=== PATIENT | male | born 1950 | race Caucasian/White ===

== ENCOUNTER 2019-03-22 08:41 | Inpatient (IN) | payer OTHER, MEDICARE ==
[2019-03-21 16:14] VITALS: BMI 31.3
[2019-03-22] MEDS ORDERED: PROPOFOL 20 ML ONE (10:08)
[2019-03-22] MEDS ORDERED: ROCURONIUM BROMIDE 50 MG/5 ML SYRINGE ONE ×2 (10:09→12:08)
[2019-03-22] MEDS ORDERED: MIDAZOLAM HCL 2 MG/2 ML SINGLE DOSE VIAL ONE (10:09)
[2019-03-22 10:38] LABS: INR 1.31 (0.82-1.09); PROTHROMBIN TIME (PATIENT) 14.6 SEC (10.2-13.0)
[2019-03-22] MEDS ORDERED: ONDANSETRON 4 MG/2 ML VIAL ONE ×2 (11:24→13:23)
[2019-03-22] MEDS ORDERED: HYDROCORTISONE SOD SUCCINATE 2 ML ONE (11:45)
[2019-03-22] MEDS ORDERED: GUM MASTIC/STORAX/MSAL/ALCOHOL 1 DRP DROPSBTL MC ONE (12:01)
[2019-03-22] MEDS ORDERED: GLYCOPYRROLATE 0.2 MG/1 ML VIAL ONE (12:41)
[2019-03-22] MEDS ORDERED: NEOSTIGMINE METHYLSULFATE 0.5 MG/ML - 10 ML MDV ONE (12:41)
[2019-03-22] MEDS ORDERED: ONDANSETRON 4 MG/2 ML VIAL IVPUSH PRN ×2 (13:05→13:25)
[2019-03-22] MEDS ORDERED: HYDROmorphone HCL CARPU-JECT 1 MG/1 ML DISP.SYRIN IVPUSH PRN (13:05)
[2019-03-22] MEDS ORDERED: LACTATED RINGERS SOLUTION 1,000 ML IV SCH (13:15)
[2019-03-22] MEDS ORDERED: PATIENT'S OWN MEDICATION (NON-FORMULARY) (Alirocumab [Praluent Pen] 75 MG) SQ SCH (13:30)
[2019-03-22] MEDS ORDERED: DEXTROSE 5%-0.45% SALINE 1,000 ML IV SCH (13:30)
[2019-03-22] MEDS ORDERED: HYDROmorphone HCL 0.5 MG/0.5 ML SYRINGE ONE (14:09)
--- NOTE | 2019-03-22 14:58 | HP ---
HISTORY OF PRESENT ILLNESS: 68 year-old male with a PMH significant for HTN, HLD, DVT, PE, polymyalgia rheumatica, proteinuria, ANTHONY, and spinal stenosis s/p L3-L4 laminectomy on with Dr. Nielson at [facility]. On 03/02 patient developed drainage from the surgical site. Dr. Nielson aspirated 25cc blood-tinged, nonpururlent fluid, but there is no available culture report. Patient completed a course of Keflex. On 03/[address] Tripp's office with yellowish discharge from the surgical site. Patient is now s/p drainage/lavage earlier today with Dr. Tripp. 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 Smoking: nightly cigar Alcohol: 1 drink per night Drugs: no Family history: father prostate cancer, Parkinson's; Allergies No Known Allergies Allergy (Verified 03/22/19 09:25) HOME MEDICATIONS: Home Medications Medication Instructions Recorded Alirocumab [Praluent Pen] 75 mg SQ ASDIR 03/21/19 Allopurinol [Zyloprim -] 200 mg PO DAILY 03/21/19 Metoprolol Tartrate 50 mg PO DAILY 03/21/19 Prednisone 5 mg PO DAILY 03/21/19 Ropinirole HCl [Requip -] 2.5 mg PO HS 03/21/19 Valsartan [Diovan] 160 mg PO DAILY 03/21/19 Warfarin Na [Coumadin] 2 mg PO ASDIR 03/21/19 REVIEW OF SYSTEMS CONSTITUTIONAL: Absent: fever, chills, diaphoresis, generalized weakness, malaise, loss of appetite, weight change HEENT: Absent: rhinorrhea, nasal congestion, throat pain, throat swelling, difficulty swallowing, mouth swelling, ear pain, eye pain, visual changes CARDIOVASCULAR: Absent: chest pain, syncope, palpitations, irregular heart rate, lightheadedness , peripheral edema RESPIRATORY: Absent: cough, shortness of breath, dyspnea with exertion, orthopnea, wheezing, stridor, hemoptysis GASTROINTESTINAL: Absent: abdominal pain, abdominal distension, nausea, vomiting, diarrhea, constipation, melena, hematochezia GENITOURINARY: Absent: dysuria, frequency, urgency, hesitancy, hematuria, flank pain, genital pain MUSCULOSKELETAL: +back pain with bilateral radiculopathy Absent: myalgia, arthralgia, joint swelling, back pain, neck pain SKIN: Absent: rash, itching, pallor HEMATOLOGIC/IMMUNOLOGIC: Absent: easy bleeding, easy bruising, lymphadenopathy, frequent infections ENDOCRINE: Absent: unexplained weight gain, unexplained weight loss, heat intolerance, cold intolerance NEUROLOGIC: Absent: headache, focal weakness or paresthesias, dizziness, unsteady gait, seizure, mental status changes, bladder or bowel incontinence PSYCHIATRIC: Absent: anxiety, depression, suicidal or homicidal ideation, hallucinations. PHYSICAL EXAMINATION Vital Signs - 24 hr 03/22/19 03/22/19 03/22/19 09:28 13:01 13:05 Temperature 98.1 F 97.7 F Pulse Rate 73 78 71 Respiratory 20 14 16 Rate Blood Pressure 144/87 152/88 156/87 O2 Sat by Pulse 100 Oximetry (%) 03/22/19 03/22/19 03/22/19 13:10 13:15 13:30 Temperature Pulse Rate 71 72 82 Respiratory 16 16 16 Rate Blood Pressure 145/99 135/81 131/81 O2 Sat by Pulse 100 100 100 Oximetry (%) 03/22/19 13:45 Temperature 97.7 F Pulse Rate 82 Respiratory 16 Rate Blood Pressure 131/81 O2 Sat by Pulse 100 Oximetry (%) GENERAL: Awake, alert, and fully oriented, in no acute distress. LUNGS: Breath sounds equal, clear to auscultation bilaterally. No wheezes, and no crackles. No accessory muscle use. HEART: Regular rate and rhythm, normal S1 and S2 ABDOMEN: Soft, nontender, not distended BACK: surgical dressing c/d/i, surgical wound not visualized; Hemovac drain MUSCULOSKELETAL: Normal range of motion at all joints. No bony deformities or tenderness. No CVA tenderness. UPPER EXTREMITIES: 2+ pulses, warm, well-perfused. No cyanosis. No clubbing. No peripheral edema. LOWER EXTREMITIES: 2+ pulses, warm, well-perfused. No calf tenderness. No peripheral edema. NEUROLOGICAL: Cranial nerves II-XII intact. Normal speech. Laboratory Results - last 24 hr 03/22/19 10:15 PT with INR 14.6 H INR 1.31 H ASSESSMENT/PLAN 68 year-old male with a PMH significant for HTN, HLD, DVT, PE, polymyalgia rheumatica, proteinuria, ANTHONY, and spinal stenosis s/p L3-L4 laminectomy on , now s/p drainage/lavage for a surgical wound infection. Surgical wound infection s/p drainage and lavage --POD #0 --Cefazolin 1g q6h --pain management per surgery --protonix --bowel regimen --incentive spirometry --Hemovac drain, monitor output h/o DVT h/o PE --last dose coumadin on 03/18 --hold anti-coagulation until tomorrow Polymyalgia rheumatica --on a slow prednisone taper, current dosing 5mg in am, 4mg in pm, will continue ANTHONY --uses CPAP at home, does not want to use while inpatient Hypertension --BP stable --continue valsartan, metoprolol Hyperlipidemia --continue alirocumab Restless leg --continue ropinirole FEN Fluids: PO intake adequate Electrolytes: replete as indicated Nutrition: regular diet DVT prophylaxis: OOB, ambulation, TEDs; will start full dose lovenox tomorrow if no bleeding problems and start bridge to coumadin Physical therapy Dispo: continues to require inpatient care. Full code. Visit type - Emergency Visit Emergency Visit: No - New Patient This patient is new to me today: Yes Date on this admission: 03/23/19 - Critical Care Critical Care patient: No
[2019-03-22] MEDS ORDERED: diazePAM 5 MG TABLET PO PRN (15:33)
--- NOTE | 2019-03-22 16:55 | OP ---
Operative Note - Note: Operative Date: 03/22/19 Pre-Operative Diagnosis: wound infection Operation: s/p wound exploration to lumbar region with drainage/lavage of the wound Surgeon: Bg Tripp Honing Machine Operator Semiautomatic: Katie Hernandez Anesthesiologist/WIRE MILL ROVER: Amanda Montana Anesthesia: General Estimated Blood Loss (mls): 30 Fluid Volume Replaced (mls): 700 Operative Report Dictated: Yes
--- NOTE | 2019-03-22 16:56 | SURG ---
Surgery Pantry Chef Note Pantry Chef: Katie Hernandez PA-C Date of Service: 03/22/19 Diagnosis: wound infection Procedure: s/p wound exploration to lumbar region with drainage/lavage of the wound I was present for the entirety of the operative procedure. For further detail, please refer to operative report. Visit type - Case Type Case Type: Scheduled - Emergency Emergency Visit: No - New patient This patient is new to me today: Yes Date on this admission: 03/22/19
[2019-03-22] MEDS: oxyCODONE HCL 5 MG TABLET PO PRN ×2 (18:10→22:06)
[2019-03-22] MEDS: CEFAZOLIN 1 GM/D5W 1 GRAM/50 ML BAG IVPB SCH (20:16)
[2019-03-22] MEDS: rOPINIRole HCL 1 MG TABLET (FP) PO SCH (21:34)
[2019-03-23] MEDS: CEFAZOLIN 1 GM/D5W 1 GRAM/50 ML BAG IVPB SCH ×4 (01:24→20:13)
[2019-03-23] MEDS: oxyCODONE HCL 5 MG TABLET PO PRN ×4 (04:09→17:28)
[2019-03-23 07:56] LABS: HEMATOCRIT 39.7 % (35.4-49); HEMOGLOBIN 12.8 GM/dl (11.7-16.9); MCH 31.7 pg (25.7-33.7); MCHC 32.3 g/dl (32.0-35.9); MEAN CELL VOLUME 98.1 fl (80-96); MEAN PLT VOLUME 9.4 fl (7.5-11.1); PLATELET COUNT 151 K/MM3 (134-434); RBC 4.05 M/mm3 (4.00-5.60); RDW 14.7 % (11.9-15.9); WHITE BLOOD COUNT 13.7 K/mm3 (4.0-10.8)
[2019-03-23 08:19] LABS: CALCIUM 9.1 mg/dl (8.5-10); CREATININE 1.3 mg/dl (0.55-1.3); POTASSIUM 4.4 mmol/L (3.5-5.1)
--- NOTE | 2019-03-23 08:33 | PN ---
Progress Note (short form) - Note Progress Note: Surgery POD #1 s/p wound exploration to lumbar region with drainage/lavage of the wound patient seen and examined at bedside and doing well. Patient states he has little to no pain at surgical site and less right LE radiculopathy. He has been OOB and ambulating without assistance. He is tolerating his diet and denies any CP, SOB, N/V, fever or chills. Vital Signs Temp 97.6 F 03/23/19 06:24 Pulse 70 03/23/19 06:24 Resp 19 03/23/19 07:30 BP 154/85 03/23/19 06:24 Pulse Ox 99 03/23/19 07:30 Intake & Output 03/22/19 03/22/19 03/23/19 11:59 23:59 11:59 Intake Total 2800 Output Total 220 10 Balance 2580 -10 Weight 200 lb 205 lb 8 oz Intake: IV 1400 D5-1/2Ns - 1,000 ml @ 100 500 mls/hr IV ASDIR DAVID Rx#: [id number] Oral 400 Other 1000 Output: Drainage 70 10 Back 30 Lower Back 30 10 Urine 100 Void 100 Estimated Blood Loss 50 Other: Voiding Method Urinal Urinal Height 5 ft 7 in Body Mass Index (BMI) 31.3 Weight Measurement Method Standing Scale Standing Scale CBC, BMP 03/23/19 07:21 03/23/19 07:21 PE: A&Ox3, NAD Unlabored resp on RA Lumbar spine: Dressing c/d/i with surrounding tissue intact and no evidence of tracking erythema, edema, collection or active drainage. Drain in good position and draining well-50cc since surgery. B/L LE compartments soft, supple and non-tender with +2DP pulses. 5/5 dorsi/ plantar flexion. <Valencia Melton - Last Filed: 03/23/19 08:27> - Note Progress Note: Patient is comfortable States that his pain is improved Awaiting ID consult <Bg Tripp - Last Filed: 03/25/19 06:03> Problem List - Problems (1) Wound infection Assessment/Plan: POD #1 wound exploration and drainage doing well. -Trend drain output -Trend labs -ABX per medicine -Resume anticoagulation -OOB as tolerated Evaluation and plan discussed with Dr Tripp. Code(s): T14.8XXA - OTHER INJURY OF UNSPECIFIED BODY REGION, INITIAL ENCOUNTER; L08.9 - LOCAL INFECTION OF THE SKIN AND SUBCUTANEOUS TISSUE, UNSP <Valencia Melton - Last Filed: 03/23/19 08:27>
[2019-03-23] MEDS: VALSARTAN 160 MG TABLET (UD) PO SCH (09:14)
[2019-03-23] MEDS: ALLOPURINOL 100 MG TABLET (FP) PO SCH (09:15)
[2019-03-23] MEDS: METOPROLOL TARTRATE 50 MG TABLET (FP) PO SCH (09:15)
[2019-03-23] MEDS: predniSONE 5 MG TABLET (UD) PO SCH (09:48)
[2019-03-23] MEDS: ENOXAPARIN NA (PORCINE) 100 MG/1 ML DISP.SYRIN SQ SCH ×3 (09:48→22:14)
[2019-03-23] MEDS ORDERED: WARFARIN NA 5 MG TABLET (UD) PO ONE (10:00)
--- NOTE | 2019-03-23 16:05 | CON.ID ---
Consult Consult Specialty:: infectious diseases Referred by:: Peg Reason for Consultation:: spinal infection post op - History of Present Illness Chief Complaint: pain in the back,draiange post op History of Present Illness: 68 year-old male with a PMH significant for HTN, HLD, DVT, PE, polymyalgia rheumatica, proteinuria, ANTHONY, and spinal stenosis s/p L3-L4 laminectomy on with Dr. Nielson at [facility]. On 03/02 patient developed drainage from the surgical site. Dr. Nielson aspirated 25cc blood-tinged, nonpururlent fluid, but there is no available culture report. Patient completed a course of Keflex. On 03/[address] Tripp's office with yellowish discharge from the surgical site. patient was then to the or and a wash out was done and currently patient has drainage tube in place post op - History Source History Provided By: Patient Limitations to Obtaining History: No Limitations - Alcohol/Substance Use Hx Alcohol Use: Yes (DAILY SCOTCH) - Smoking History Smoking history: Never smoked Have you smoked in the past 12 months: No Home Medications - Allergies Allergies/Adverse Reactions: Allergies Allergy/AdvReac Type Severity Reaction Status Date / Time No Known Allergies Allergy Verified 03/22/19 09:25 - Home Medications Home Medications: Ambulatory Orders Alirocumab [Praluent Pen] 75 mg SQ ASDIR 03/21/19 Allopurinol [Zyloprim -] 200 mg PO DAILY 03/21/19 Metoprolol Tartrate 50 mg PO DAILY 03/21/19 Prednisone 5 mg PO DAILY 03/21/19 Ropinirole HCl [Requip -] 2.5 mg PO HS 03/21/19 Valsartan [Diovan] 160 mg PO DAILY 03/21/19 Warfarin Na [Coumadin] 2 mg PO ASDIR 03/21/19 predniSONE [Deltasone -] 4 mg PO HS 03/23/19 Review of Systems - Review of Systems Constitutional: reports: No Symptoms Eyes: reports: No Symptoms HENT: reports: No Symptoms Neck: reports: No Symptoms Cardiovascular: reports: No Symptoms Respiratory: reports: No Symptoms Gastrointestinal: reports: No Symptoms Musculoskeletal: reports: Back Pain Integumentary: reports: No Symptoms Neurological: reports: No Symptoms Endocrine: reports: No Symptoms Hematology/Lymphatic: reports: No Symptoms Psychiatric: reports: No Symptoms Physical Exam Vital Signs: Vital Signs Temperature 98.1 F 03/23/19 14:13 Pulse Rate 72 03/23/19 14:13 Respiratory Rate 18 03/23/19 14:13 Blood Pressure 122/66 03/23/19 14:13 O2 Sat by Pulse Oximetry (%) 98 03/23/19 14:13 Constitutional: Yes: Well Nourished, Calm, Mild Distress Eyes: Yes: Conjunctiva Clear HENT: Yes: Atraumatic, Normocephalic Neck: Yes: Supple, Trachea Midline Cardiovascular: Yes: Regular Rate and Rhythm Respiratory: Yes: Regular, CTA Bilaterally Gastrointestinal: Yes: Normal Bowel Sounds, Soft Musculoskeletal: Yes: WNL Extremities: Yes: WNL Wound/Incision: Yes: Dressing Dry and Intact, Other (drain in place) Neurological: Yes: Alert, Oriented Labs: CBC, BMP 03/23/19 07:21 03/23/19 07:21 Assessment/Plan 68 year-old male with a PMH significant for HTN, HLD, DVT, PE, polymyalgia rheumatica, proteinuria, ANTHONY, and spinal stenosis s/p L3-L4 laminectomy on , now s/p drainage/lavage for a surgical wound infection. Surgical wound infection s/p drainage and lavage DVT PE Polymyalgia rheumatica ANTHONY Hypertension Hyperlipidemia Restless leg Proteinuria plan continue abx await for cx report wound care rest as per the team
[2019-03-23] MEDS ORDERED: POLYETHYLENE GLYCOL 3350 119 GM BTL PO ONE (16:37)
[2019-03-23] MEDS: PANTOPRAZOLE 40 MG TABLET (FP) PO SCH (17:22)
--- NOTE | 2019-03-23 18:42 | PN ---
Physical Exam: SUBJECTIVE: Patient seen and examined at bedside. Has no pain at present. OBJECTIVE: Vital Signs Period Temp Pulse Resp BP Sys/Figueroa Pulse Ox Last 24 Hr 97.6 F-98.4 F 67-81 18-19 122-154/66-85 95-99 GENERAL: Awake, alert, and fully oriented, in no acute distress. LUNGS: Breath sounds equal, clear to auscultation bilaterally. No wheezes, and no crackles. No accessory muscle use. HEART: Regular rate and rhythm, normal S1 and S2 ABDOMEN: Soft, nontender, not distended BACK: surgical dressing c/d/i, surgical wound not visualized; Hemovac drain MUSCULOSKELETAL: Normal range of motion at all joints. No bony deformities or tenderness. No CVA tenderness. UPPER EXTREMITIES: 2+ pulses, warm, well-perfused. No cyanosis. No clubbing. No peripheral edema. LOWER EXTREMITIES: 2+ pulses, warm, well-perfused. No calf tenderness. No peripheral edema. NEUROLOGICAL: Cranial nerves II-XII intact. Normal speech. Laboratory Results - last 24 hr 03/23/19 03/23/19 07:21 07:21 WBC 13.7 H RBC 4.05 Hgb 12.8 Hct 39.7 MCV 98.1 H MCH 31.7 MCHC 32.3 RDW 14.7 Plt Count 151 MPV 9.4 Sodium 139 Potassium 4.4 Chloride 105 Carbon Dioxide 25 Anion Gap 9 BUN 22.0 H Creatinine 1.3 Est GFR (CKD-EPI)AfAm 64.98 Est GFR (CKD-EPI)NonAf 56.06 Random Glucose 98 Calcium 9.1 Active Medications Generic Name Dose Route Start Last Admin Trade Name Waltq PRN Reason Stop Dose Admin Acetaminophen 650 mg 03/22/19 13:25 Tylenol - PO Q4H PRN FEVER Allopurinol 200 mg 03/23/19 10:00 03/23/19 09:15 Zyloprim - PO 200 mg DAILY DAVID Administration Enoxaparin Sodium 90 mg 03/23/19 10:00 03/23/19 09:51 Lovenox - SQ Not Given Q12H DAVID Cefazolin Sodium 1 gram in 50 mls @ 100 mls/hr 03/22/19 20:00 03/23/19 13:20 Ancef 1 Gm Premixed Ivpb - IVPB 100 mls/hr Q6H DAVID Administration Metoprolol Tartrate 50 mg 03/23/19 10:00 03/23/19 09:15 Lopressor - PO 50 mg DAILY DAVID Administration Non-Formulary Medication 75 mg 03/22/19 13:30 Alirocumab [Praluent Pen] SQ ASDIR DAVID Ondansetron HCl 4 mg 03/22/19 13:25 Zofran Injection IVPUSH Q6H PRN NAUSEA AND/OR VOMITING Oxycodone HCl 5 mg 03/22/19 13:25 03/23/19 17:28 Roxicodone - PO 5 mg Q4H PRN Administration PAIN LEVEL 1-5 Pantoprazole Sodium 40 mg 03/23/19 16:45 03/23/19 17:22 Protonix - PO 40 mg DAILY DAVID Administration Prednisone 5 mg 03/23/19 10:00 03/23/19 09:48 Deltasone - PO 5 mg DAILY DAVID Administration Prednisone 4 mg 03/23/19 22:00 Deltasone - PO HS DAVID Ropinirole HCl 2.5 mg 03/22/19 22:00 03/22/19 21:34 Requip - PO 2.5 mg HS DAVID Administration Senna/Docusate Sodium 2 tablet 03/23/19 22:00 Pericolace - PO 03/24/19 16:39 HS DAVID Valsartan 160 mg 03/23/19 10:00 03/23/19 09:14 Diovan - PO 160 mg DAILY DAVID Administration Pre op 03/21/19 BUN 29 Cr 1.3 ASSESSMENT/PLAN 68 year-old male with a PMH significant for HTN, HLD, DVT, PE, polymyalgia rheumatica, proteinuria, ANTHONY, and spinal stenosis s/p L3-L4 laminectomy on , now s/p drainage/lavage for a surgical wound infection. Surgical wound infection s/p drainage and lavage --POD #1 --Cefazolin 1g q6h; ID consult pending --pain management per surgery --protonix --bowel regimen --incentive spirometry --Hemovac drain, minimal output h/o DVT h/o PE --last dose coumadin on 03/18 --start lovenox 1mg/kg BID --INR 1.31, dose 5mg warfarin --daily INR, daily dosing warfarin Polymyalgia rheumatica --on a slow prednisone taper, current dosing 5mg in am, 4mg in pm, will continue ANTHONY --uses CPAP at home, does not want to use while inpatient Hypertension --BP stable --continue valsartan, metoprolol Hyperlipidemia --continue alirocumab Restless leg --continue ropinirole Proteinuria --renal function stable FEN Fluids: PO intake adequate Electrolytes: replete as indicated Nutrition: regular diet DVT prophylaxis: lovenox 1mg/kg BID; daily dosing warfarin to achieve INR 2-3 Physical therapy Dispo: continues to require inpatient care. Full code. Visit type - Emergency Visit Emergency Visit: No - New Patient This patient is new to me today: No - Critical Care Critical Care patient: No
--- NOTE | 2019-03-23 18:49 | PROC ---
Procedure Note Procedure: Hemovac drain pulled from midline back with tip intact. No active bleeding. Sterile gauzed placed. Patient tolerated well.
[2019-03-23] MEDS ORDERED: oxyCODONE HCL 5 MG TABLET PO ONE (22:00)
[2019-03-23] MEDS ORDERED: SENNOSIDES/DOCUSATE COMBO (SENNA PLUS) TABLET (UD) PO SCH (22:00)
[2019-03-23] MEDS: predniSONE 1 MG TABLET (FP) PO SCH (22:09)
[2019-03-23] MEDS: rOPINIRole HCL 1 MG TABLET (FP) PO SCH (22:12)
[2019-03-24] MEDS: oxyCODONE HCL 5 MG TABLET PO PRN ×4 (02:24→21:15)
[2019-03-24] MEDS: CEFAZOLIN 1 GM/D5W 1 GRAM/50 ML BAG IVPB SCH ×4 (02:24→19:46)
[2019-03-24] MEDS: predniSONE 5 MG TABLET (UD) PO SCH (09:09)
[2019-03-24] MEDS: PANTOPRAZOLE 40 MG TABLET (FP) PO SCH (09:10)
[2019-03-24] MEDS: ALLOPURINOL 100 MG TABLET (FP) PO SCH (09:10)
[2019-03-24] MEDS: METOPROLOL TARTRATE 50 MG TABLET (FP) PO SCH (09:10)
[2019-03-24] MEDS: VALSARTAN 160 MG TABLET (UD) PO SCH (09:10)
[2019-03-24] MEDS: ENOXAPARIN NA (PORCINE) 100 MG/1 ML DISP.SYRIN SQ SCH ×2 (09:12→16:19)
[2019-03-24] MEDS ORDERED: POLYETHYLENE GLYCOL 3350 119 GM BTL PO SCH (10:00)
--- NOTE | 2019-03-24 11:47 | PN ---
Progress Note, Physician History of Present Illness: Pt states he feels well. Has occasional pain but controlled. - Current Medication List Current Medications: Active Medications Acetaminophen (Tylenol -) 650 mg PO Q4H PRN PRN Reason: FEVER Allopurinol (Zyloprim -) 200 mg PO DAILY [facility] Last Admin: 03/24/19 09:10 Dose: 200 mg Enoxaparin Sodium (Lovenox -) 90 mg SQ Q12H [facility] Last Admin: 03/24/19 09:12 Dose: Not Given Cefazolin Sodium (Ancef 1 Gm Premixed Ivpb -) 1 gram in 50 mls @ 100 mls/hr IVPB Q6H [facility] Last Admin: 03/24/19 08:06 Dose: 100 mls/hr Metoprolol Tartrate (Lopressor -) 50 mg PO DAILY [facility] Last Admin: 03/24/19 09:10 Dose: 50 mg Non-Formulary Medication (Alirocumab [Praluent Pen]) 75 mg SQ ASDIR [facility] Ondansetron HCl (Zofran Injection) 4 mg IVPUSH Q6H PRN PRN Reason: NAUSEA AND/OR VOMITING Oxycodone HCl (Roxicodone -) 5 mg PO Q6H PRN PRN Reason: PAIN LEVEL 1-5 Last Admin: 03/24/19 09:09 Dose: 5 mg Pantoprazole Sodium (Protonix -) 40 mg PO DAILY [facility] Last Admin: 03/24/19 09:10 Dose: 40 mg Prednisone (Deltasone -) 5 mg PO DAILY [facility] Last Admin: 03/24/19 09:09 Dose: 5 mg Prednisone (Deltasone -) 4 mg PO [facility] Last Admin: 03/23/19 22:09 Dose: 4 mg Ropinirole HCl (Requip -) 2.5 mg PO HS [facility] Last Admin: 03/23/19 22:12 Dose: 2.5 mg Senna/Docusate Sodium (Pericolace -) 2 tablet PO [facility] Stop: 03/24/19 16:39 Last Admin: 03/23/19 22:09 Dose: 2 tablet Valsartan (Diovan -) 160 mg PO DAILY [facility] Last Admin: 03/24/19 09:10 Dose: 160 mg - Objective Vital Signs: Vital Signs Temperature 98.7 F 03/24/19 09:48 Pulse Rate 77 03/24/19 09:48 Respiratory Rate 03/24/19 09:48 Blood Pressure 131/75 03/24/19 09:48 O2 Sat by Pulse Oximetry (%) 100 03/24/19 09:48 Constitutional: Yes: No Distress, Calm Cardiovascular: Yes: Regular Rate and Rhythm Respiratory: Yes: Regular Gastrointestinal: Yes: Normal Bowel Sounds, Soft Genitourinary: Yes: WNL Musculoskeletal: Yes: Back Pain Extremities: Yes: WNL Integumentary: Yes: WNL Wound/Incision: Yes: Dressing Dry and Intact Neurological: Yes: Alert, Oriented Labs: CBC, BMP 03/23/19 07:21 03/23/19 07:21 INR, PTT INR 1.31 (0.82-1.09) H 03/22/19 10:15 Microbiology 03/22/19 11:42 Back Gram Stain - Final 03/22/19 11:42 Back Wound Culture - Preliminary 03/22/19 11:42 Back Gram Stain - Final Problem List - Problems (1) Wound infection Code(s): T14.8XXA - OTHER INJURY OF UNSPECIFIED BODY REGION, INITIAL ENCOUNTER; L08.9 - LOCAL INFECTION OF THE SKIN AND SUBCUTANEOUS TISSUE, UNSP Assessment/Plan Surgical wound infection s/p drainage and lavage s/p Lumbar laminectomy Hx of DVT Hx of PE Polymyalgia rheumatica ANTHONY Hypertension Hyperlipidemia -- continue Ancef for now -- follow up final wound culture results -- continue wound care
[2019-03-24] MEDS ORDERED: MAG HYDROX/AL HYDROX/SIMETH 30 ML UNIT-DOSE CUP PO PRN (12:25)
--- NOTE | 2019-03-24 12:25 | PN ---
Physical Exam: SUBJECTIVE: Patient seen and examined. Denies pain. OBJECTIVE: Vital Signs Period Temp Pulse Resp BP Sys/Figueroa Pulse Ox Last 24 Hr 97.6 F-98.8 F 61-77 18-19 122-138/66-79 95-100 GENERAL: Awake, alert, and fully oriented, in no acute distress. LUNGS: Breath sounds equal, clear to auscultation bilaterally. No wheezes, and no crackles. No accessory muscle use. HEART: Regular rate and rhythm, normal S1 and S2 ABDOMEN: Soft, nontender, not distended BACK: surgical dressing c/d/i, surgical wound not visualized MUSCULOSKELETAL: Normal range of motion at all joints. No bony deformities or tenderness. No CVA tenderness. UPPER EXTREMITIES: 2+ pulses, warm, well-perfused. No cyanosis. No clubbing. No peripheral edema. LOWER EXTREMITIES: 2+ pulses, warm, well-perfused. No calf tenderness. No peripheral edema. NEUROLOGICAL: Cranial nerves II-XII intact. Normal speech. Active Medications Generic Name Dose Route Start Last Admin Trade Name Freq PRN Reason Stop Dose Admin Acetaminophen 650 mg 03/22/19 13:25 Tylenol - PO Q4H PRN FEVER Al Hydroxide/Mg Hydroxide 30 ml 03/24/19 12:25 Mylanta Oral Suspension - PO Q6H PRN DYSPEPSIA Allopurinol 200 mg 03/23/19 10:00 03/24/19 09:10 Zyloprim - PO 200 mg DAILY DAVID Administration Enoxaparin Sodium 90 mg 03/23/19 10:00 03/24/19 09:12 Lovenox - SQ Not Given Q12H [facility] Cefazolin Sodium 1 gram in 50 mls @ 100 mls/hr 03/22/19 20:00 03/24/19 08:06 Ancef 1 Gm Premixed Ivpb - IVPB 100 mls/hr Q6H DAVID Administration Metoprolol Tartrate 50 mg 03/23/19 10:00 03/24/19 09:10 Lopressor - PO 50 mg DAILY DAVID Administration Non-Formulary Medication 75 mg 03/22/19 13:30 Alirocumab [Praluent Pen] SQ ASDIR DAVID Ondansetron HCl 4 mg 03/22/19 13:25 03/24/19 12:21 Zofran Injection IVPUSH 4 mg Q6H PRN Administration NAUSEA AND/OR VOMITING Oxycodone HCl 5 mg 03/23/19 18:47 03/24/19 09:09 Roxicodone - PO 5 mg Q6H PRN Administration PAIN LEVEL 1-5 Pantoprazole Sodium 40 mg 03/23/19 16:45 03/24/19 09:10 Protonix - PO 40 mg DAILY DAVID Administration Prednisone 5 mg 03/23/19 10:00 03/24/19 09:09 Deltasone - PO 5 mg DAILY DAVID Administration Prednisone 4 mg 03/23/19 22:00 03/23/19 22:09 Deltasone - PO 4 mg HS DAVID Administration Ropinirole HCl 2.5 mg 03/22/19 22:00 03/23/19 22:12 Requip - PO 2.5 mg HS DAVID Administration Senna/Docusate Sodium 2 tablet 03/23/19 22:00 03/23/19 22:09 Pericolace - PO 03/24/19 16:39 2 tablet HS DAVID Administration Valsartan 160 mg 03/23/19 10:00 03/24/19 09:10 Diovan - PO 160 mg DAILY DAVID Administration ASSESSMENT/PLAN: Pre op 03/21/19 BUN 29 Cr 1.3 ASSESSMENT/PLAN 68 year-old male with a PMH significant for HTN, HLD, DVT, PE, polymyalgia rheumatica, proteinuria, ANTHONY, and spinal stenosis s/p L3-L4 laminectomy on , now s/p drainage/lavage for a surgical wound infection. Surgical wound infection s/p drainage and lavage --POD #2 --afebrile, no leukocytosis --cultures growing staph coag neg; discussed with ID, continue Cefazolin 1g q6h for now --pain management per surgery --protonix; Maalox --bowel regimen --incentive spirometry h/o DVT h/o PE --last dose coumadin on 03/18 --lovenox 1mg/kg BID --daily INR, daily dosing warfarin Polymyalgia rheumatica --on a slow prednisone taper, current dosing 5mg in am, 4mg in pm, will continue ANTHONY --uses CPAP at home, does not want to use while inpatient Hypertension --BP stable --continue valsartan, metoprolol Hyperlipidemia --continue alirocumab Restless leg --continue ropinirole Proteinuria --renal function stable FEN Fluids: PO intake adequate Electrolytes: replete as indicated Nutrition: regular diet DVT prophylaxis: lovenox 1mg/kg BID; daily dosing warfarin to achieve INR 2-3 Physical therapy Dispo: continues to require inpatient care. Full code. Visit type - Emergency Visit Emergency Visit: No - New Patient This patient is new to me today: No - Critical Care Critical Care patient: No
[2019-03-24] MEDS: ACETAMINOPHEN 325 MG TABLET (FP) PO PRN ×2 (14:38→21:15)
[2019-03-24] MEDS ORDERED: WARFARIN NA 5 MG TABLET (UD) PO SCH (18:00)
[2019-03-24] MEDS: predniSONE 1 MG TABLET (FP) PO SCH (21:10)
[2019-03-24] MEDS: rOPINIRole HCL 1 MG TABLET (FP) PO SCH (21:10)
[2019-03-25] MEDS: CEFAZOLIN 1 GM/D5W 1 GRAM/50 ML BAG IVPB SCH ×3 (02:58→13:08)
[2019-03-25] MEDS: ENOXAPARIN NA (PORCINE) 100 MG/1 ML DISP.SYRIN SQ SCH ×2 (03:42→16:05)
[2019-03-25] MEDS: ALLOPURINOL 100 MG TABLET (FP) PO SCH (09:11)
[2019-03-25] MEDS: PANTOPRAZOLE 40 MG TABLET (FP) PO SCH (09:11)
[2019-03-25] MEDS: VALSARTAN 160 MG TABLET (UD) PO SCH (09:11)
[2019-03-25] MEDS: predniSONE 5 MG TABLET (UD) PO SCH (09:11)
[2019-03-25] MEDS: METOPROLOL TARTRATE 50 MG TABLET (FP) PO SCH (09:11)
[2019-03-25] MEDS: ACETAMINOPHEN 325 MG TABLET (FP) PO PRN (09:11)
[2019-03-25 09:28] LABS: BASO % 0.4 % (0-2.0); HEMOGLOBIN 12.7 GM/dl (11.7-16.9); LYMPH % 14.5 % (8-40); MCH 31.9 pg (25.7-33.7); MCHC 32.5 g/dl (32.0-35.9); MEAN CELL VOLUME 98.1 fl (80-96); MEAN PLT VOLUME 9.2 fl (7.5-11.1); MONO % 7.3 % (3.8-10.2); NEUT % 73.8 % (42.8-82.8); PLATELET COUNT 166 K/MM3 (134-434); RBC 3.98 M/mm3 (4.00-5.60); RDW 15.1 % (11.9-15.9); WHITE BLOOD COUNT 9.6 K/mm3 (4.0-10.8)
[2019-03-25 09:33] LABS: ALBUMIN 3.2 g/dl (3.4-5.0); BILIRUBIN,TOTAL 0.3 mg/dl (0.2-1); CALCIUM 8.9 mg/dl (8.5-10); CREATININE 1.5 mg/dl (0.55-1.3); MAGNESIUM 1.8 mg/dL (1.8-2.4); POTASSIUM 4.3 mmol/L (3.5-5.1); TOT PROT 6.1 g/dl (6.4-8.2)
--- NOTE | 2019-03-25 11:12 | PN ---
Physical Exam: SUBJECTIVE: Patient seen and examined OBJECTIVE: Vital Signs Period Temp Pulse Resp BP Sys/Figueroa Pulse Ox Last 24 Hr 98.0 F-98.8 F 66-95 18-19 106-138/55-81 95-99 GENERAL: The patient is awake, alert, and fully oriented, in no acute distress. HEAD: Normal with no signs of trauma. EYES: PERRL, extraocular movements intact, sclera anicteric, conjunctiva clear. No ptosis. ENT: Ears normal, nares patent, oropharynx clear without exudates, moist mucous membranes. NECK: Trachea midline, full range of motion, supple. LUNGS: Breath sounds equal, clear to auscultation bilaterally, no wheezes, no crackles, no accessory muscle use. HEART: Regular rate and rhythm, S1, S2 without murmur, rub or gallop. ABDOMEN: Soft, nontender, nondistended, normoactive bowel sounds, no guarding, no rebound, no hepatosplenomegaly, no masses. EXTREMITIES: 2+ pulses, warm, well-perfused, no edema. NEUROLOGICAL: Cranial nerves II through XII grossly intact. Normal speech, gait not observed. PSYCH: Normal mood, normal affect. SKIN: Warm, dry, normal turgor, no rashes or lesions noted Laboratory Results - last 24 hr 03/25/19 03/25/19 09:00 09:20 WBC 9.6 RBC 3.98 L Hgb 12.7 Hct 39.0 MCV 98.1 H MCH 31.9 MCHC 32.5 RDW 15.1 Plt Count 166 MPV 9.2 Absolute Neuts (auto) 7.1 Neutrophils % 73.8 Lymphocytes % 14.5 Monocytes % 7.3 Eosinophils % 4.0 Basophils % 0.4 Sodium 139 Potassium 4.3 Chloride 104 Carbon Dioxide 27 Anion Gap 8 BUN 21.0 H Creatinine 1.5 H Est GFR (CKD-EPI)AfAm 54.66 Est GFR (CKD-EPI)NonAf 47.16 Random Glucose 87 Calcium 8.9 Magnesium 1.8 Total Bilirubin 0.3 AST 13 L ALT 8 L Alkaline Phosphatase 35 L Total Protein 6.1 L Albumin 3.2 L Active Medications Generic Name Dose Route Start Last Admin Trade Name Freq PRN Reason Stop Dose Admin Acetaminophen 650 mg 03/22/19 13:25 03/25/19 09:11 Tylenol - PO 650 mg Q4H PRN Administration FEVER Al Hydroxide/Mg Hydroxide 30 ml 03/24/19 12:25 03/24/19 12:57 Mylanta Oral Suspension - PO 30 ml Q6H PRN Administration DYSPEPSIA Allopurinol 200 mg 03/23/19 10:00 03/25/19 09:11 Zyloprim - PO 200 mg DAILY DAVID Administration Docusate Sodium 100 mg 03/25/19 14:00 Colace - PO TID DAVID Enoxaparin Sodium 90 mg 03/24/19 16:06 03/25/19 03:42 Lovenox - SQ 90 mg Q12H DAVID Administration Cefazolin Sodium 1 gram in 50 mls @ 100 mls/hr 03/22/19 20:00 03/25/19 08:17 Ancef 1 Gm Premixed Ivpb - IVPB 100 mls/hr Q6H DAVID Administration Sodium Chloride 1,000 mls @ 100 mls/hr 03/25/19 11:15 Normal Saline - IV 03/25/19 21:14 ASDIR DAVID Metoprolol Tartrate 50 mg 03/23/19 10:00 03/25/19 09:11 Lopressor - PO 50 mg DAILY DAVID Administration Non-Formulary Medication 75 mg 03/22/19 13:30 Alirocumab [Praluent Pen] SQ ASDIR DAVID Ondansetron HCl 4 mg 03/22/19 13:25 03/24/19 12:21 Zofran Injection IVPUSH 4 mg Q6H PRN Administration NAUSEA AND/OR VOMITING Oxycodone HCl 5 mg 03/23/19 18:47 03/24/19 21:15 Roxicodone - PO 5 mg Q6H PRN Administration PAIN LEVEL 1-5 Pantoprazole Sodium 40 mg 03/23/19 16:45 03/25/19 09:11 Protonix - PO 40 mg DAILY DAVID Administration Prednisone 5 mg 03/23/19 10:00 03/25/19 09:11 Deltasone - PO 5 mg DAILY DAVID Administration Prednisone 4 mg 03/23/19 22:00 03/24/19 21:10 Deltasone - PO 4 mg HS DAVID Administration Ropinirole HCl 2.5 mg 03/22/19 22:00 03/24/19 21:10 Requip - PO 2.5 mg HS DAVID Administration Senna 2 tab 03/25/19 22:00 Senna - PO HS DAVID Valsartan 160 mg 03/23/19 10:00 03/25/19 09:11 Diovan - PO 160 mg DAILY DAVID Administration Warfarin Sodium 5 mg 03/24/19 18:00 03/24/19 17:39 Coumadin - PO 5 mg DAILY@1800 [facility] Administration ASSESSMENT/PLAN:
[2019-03-25] MEDS ORDERED: SODIUM CHLORIDE 1,000 ML IV SCH (11:15)
[2019-03-25 11:27] LABS: ERYTHROCYTE SEDIMENTATION RATE 69 mm/hr (0-20)
[2019-03-25 11:45] LABS: INR 1.1 (0.82-1.09); PROTHROMBIN TIME (PATIENT) 12.3 SEC (10.2-13.0)
[2019-03-25] MEDS ORDERED: DOCUSATE SODIUM 100 MG CAPSULE (FP) PO SCH (14:00)
[2019-03-25] MEDS: oxyCODONE HCL 5 MG TABLET PO PRN (14:09)
--- NOTE | 2019-03-25 14:23 | PN ---
Progress Note, Physician History of Present Illness: Pt states he feels well. Denies back pain, is ambulating without assistance. Remains afebrile. No specific complaints. - Current Medication List Current Medications: Active Medications Acetaminophen (Tylenol -) 650 mg PO Q4H PRN PRN Reason: FEVER Last Admin: 03/25/19 09:11 Dose: 650 mg Al Hydroxide/Mg Hydroxide (Mylanta Oral Suspension -) 30 ml PO Q6H PRN PRN Reason: DYSPEPSIA Last Admin: 03/24/19 12:57 Dose: 30 ml Allopurinol (Zyloprim -) 200 mg PO DAILY [facility] Last Admin: 03/25/19 09:11 Dose: 200 mg Docusate Sodium (Colace -) 100 mg PO TID [facility] Last Admin: 03/25/19 13:08 Dose: 100 mg Enoxaparin Sodium (Lovenox -) 90 mg SQ Q12H [facility] Last Admin: 03/25/19 03:42 Dose: 90 mg Cefazolin Sodium (Ancef 1 Gm Premixed Ivpb -) 1 gram in 50 mls @ 100 mls/hr IVPB Q6H [facility] Last Admin: 03/25/19 13:08 Dose: 100 mls/hr Sodium Chloride (Normal Saline -) 1,000 mls @ 100 mls/hr IV ASDIR [facility] Stop: 03/25/19 21:14 Last Admin: 03/25/19 11:35 Dose: 100 mls/hr Metoprolol Tartrate (Lopressor -) 50 mg PO DAILY [facility] Last Admin: 03/25/19 09:11 Dose: 50 mg Non-Formulary Medication (Alirocumab [Praluent Pen]) 75 mg SQ ASDIR [facility] Ondansetron HCl (Zofran Injection) 4 mg IVPUSH Q6H PRN PRN Reason: NAUSEA AND/OR VOMITING Last Admin: 03/24/19 12:21 Dose: 4 mg Oxycodone HCl (Roxicodone -) 5 mg PO Q6H PRN PRN Reason: PAIN LEVEL 1-5 Last Admin: 03/25/19 14:09 Dose: 5 mg Pantoprazole Sodium (Protonix -) 40 mg PO DAILY [facility] Last Admin: 03/25/19 09:11 Dose: 40 mg Prednisone (Deltasone -) 5 mg PO DAILY [facility] Last Admin: 03/25/19 09:11 Dose: 5 mg Prednisone (Deltasone -) 4 mg PO [facility] Last Admin: 03/24/19 21:10 Dose: 4 mg Ropinirole HCl (Requip -) 2.5 mg PO [facility] Last Admin: 03/24/19 21:10 Dose: 2.5 mg Senna (Senna -) 2 tab PO [facility] Valsartan (Diovan -) 160 mg PO DAILY [facility] Last Admin: 03/25/19 09:11 Dose: 160 mg Warfarin Sodium (Coumadin -) 5 mg PO DAILY@1800 [facility] Last Admin: 03/24/19 17:39 Dose: 5 mg - Objective Vital Signs: Vital Signs Temperature 98.7 F 03/25/19 10:00 Pulse Rate 95 H 03/25/19 10:00 Respiratory Rate 18 03/25/19 10:00 Blood Pressure 125/81 03/25/19 10:00 O2 Sat by Pulse Oximetry (%) 99 03/25/19 10:00 Constitutional: Yes: No Distress, Calm Eyes: Yes: Conjunctiva Clear Cardiovascular: Yes: Regular Rate and Rhythm Respiratory: Yes: Regular Gastrointestinal: Yes: Normal Bowel Sounds, Soft Genitourinary: Yes: WNL Extremities: Yes: WNL Integumentary: Yes: WNL Wound/Incision: Yes: Other (sutures intact, no drainage, no erythema/swelling/ tenderness at site) Neurological: Yes: Alert, Oriented Labs: CBC, BMP 03/25/19 09:00 03/25/19 09:20 INR, PTT INR 1.10 (0.82-1.09) 03/25/19 11:28 Microbiology 03/22/19 11:42 Back Gram Stain - Final 03/22/19 11:42 Back Wound Culture - Final Staphylococcus Epidermidis 03/22/19 11:42 Back Gram Stain - Final 03/22/19 11:42 Back Wound Culture - Final Staphylococcus Coagulase Neg Problem List - Problems (1) Wound infection Code(s): T14.8XXA - OTHER INJURY OF UNSPECIFIED BODY REGION, INITIAL ENCOUNTER; L08.9 - LOCAL INFECTION OF THE SKIN AND SUBCUTANEOUS TISSUE, UNSP Assessment/Plan Surgical wound s/p drainage and lavage s/p Lumbar laminectomy Hx of DVT Hx of PE Polymyalgia rheumatica ANTHONY Hypertension Hyperlipidemia -- wound culture results noted: few staph epi organisms isolated -- wound site clean/sutures intact, no pain -- would suggest switch to Doxycycline 100 mg po BID x 2 wks for now -- follow up with Dr. Silver in 1 week, follow up with surgery -- suggest followup imaging of spine if symptoms persist or wound non-healing and assess need for long course IV antibiotics D/[facility]
[2019-03-25 14:34] VITALS: BP 113/71; PULSE 81; TEMP 97.8
--- NOTE | 2019-03-25 15:17 | DS ---
Physical Exam: SUBJECTIVE: Patient seen and examined OBJECTIVE: Vital Signs Period Temp Pulse Resp BP Sys/Figueroa Pulse Ox Last 24 Hr 97.8 F-98.7 F 66-95 18-19 106-138/55-81 95-99 PHYSICAL EXAM GENERAL: Awake, alert, and fully oriented, in no acute distress. LUNGS: Breath sounds equal, clear to auscultation bilaterally. No wheezes, and no crackles. No accessory muscle use. HEART: Regular rate and rhythm, normal S1 and S2 ABDOMEN: Soft, nontender, not distended BACK: surgical dressing c/d/i, surgical wound not visualized MUSCULOSKELETAL: Normal range of motion at all joints. No bony deformities or tenderness. No CVA tenderness. UPPER EXTREMITIES: 2+ pulses, warm, well-perfused. No cyanosis. No clubbing. No peripheral edema. LOWER EXTREMITIES: 2+ pulses, warm, well-perfused. No calf tenderness. No peripheral edema. NEUROLOGICAL: Cranial nerves II-XII intact. Normal speech. LABS Laboratory Results - last 24 hr 03/25/19 03/25/19 03/25/19 09:00 09:20 09:20 WBC 9.6 RBC 3.98 L Hgb 12.7 Hct 39.0 MCV 98.1 H MCH 31.9 MCHC 32.5 RDW 15.1 Plt Count 166 MPV 9.2 Absolute Neuts (auto) 7.1 Neutrophils % 73.8 Lymphocytes % 14.5 Monocytes % 7.3 Eosinophils % 4.0 Basophils % 0.4 ESR 69 H PT with INR INR Sodium 139 Potassium 4.3 Chloride 104 Carbon Dioxide 27 Anion Gap 8 BUN 21.0 H Creatinine 1.5 H Est GFR (CKD-EPI)AfAm 54.66 Est GFR (CKD-EPI)NonAf 47.16 Random Glucose 87 Calcium 8.9 Magnesium 1.8 Total Bilirubin 0.3 AST 13 L ALT 8 L Alkaline Phosphatase 35 L C-Reactive Protein 3.7 H Total Protein 6.1 L Albumin 3.2 L 03/25/19 11:28 WBC RBC Hgb Hct MCV MCH MCHC RDW Plt Count MPV Absolute Neuts (auto) Neutrophils % Lymphocytes % Monocytes % Eosinophils % Basophils % ESR PT with INR 12.3 INR 1.10 Sodium Potassium Chloride Carbon Dioxide Anion Gap BUN Creatinine Est GFR (CKD-EPI)AfAm Est GFR (CKD-EPI)NonAf Random Glucose Calcium Magnesium Total Bilirubin AST ALT Alkaline Phosphatase C-Reactive Protein Total Protein Albumin Date of Admission:03/22/19 Date of Discharge: 03/25/19 Pre hospital course 68 year-old male with a PMH significant for HTN, HLD, DVT, PE, polymyalgia rheumatica, proteinuria, ANTHONY, and spinal stenosis s/p L3-L4 laminectomy on with Dr. Nielson at [facility]. On 03/02 patient developed drainage from the surgical site. Dr. Nielson aspirated 25cc blood-tinged, nonpururlent fluid, but there is no available culture report. Patient completed a course of Keflex. On 03/[address] Tripp's office with yellowish discharge from the surgical site. Patient is now s/p drainage/lavage with Dr. Tripp. Hospital course Surgical wound infection s/p drainage and lavage --afebrile, no leukocytosis --culture (+) few staph epi --treated inpatient with cefazolin --discharged on 2 weeks of doxycycline; follow up in one week with ID h/o DVT h/o PE --given lovenox 1mg/kg BID during hospital stay, bridging to coumadin --discharged on lovenox, to follow up with PCP for INR checks Polymyalgia rheumatica --on a slow prednisone taper, continued 5mg in am, 4mg in pm ANTHONY --uses CPAP at home Hypertension --BP stable --continued valsartan, metoprolol Hyperlipidemia --continued alirocumab Restless leg --continued ropinirole Proteinuria --renal function stable Minutes to complete discharge: 35 Discharge Summary Problems reviewed: Yes Reason For Visit: POST OP WOUND INFECTION Current Active Problems Wound infection (Acute) Condition: Improved - Instructions Diet, Activity, Other Instructions: A prescription has been sent to your pharmacy for doxycycline and percocet. Take these medications as directed. As discussed, please make an appointment to see infectious disease Dr. Silver within one week of your discharge. His contact information is enclosed. You also indicated you will follow up with Dr. Tripp on Tuesday. At the time of this discharge your INR is 1.1. --take warfarin 5mg daily starting tomorrow --a prescription has been sent to your pharmacy for lovenox injections. You need to inject every twelve hours. Start tomorrow morning at 8:00am --you will need to continue to take lovenox until your INR is therapeutic, between 2 and 3 --have your INR checked within 48 hours of your discharge --follow up with your primary care provider as needed for monitoring of your INR Return to the emergency department for any new or worsening symptoms. Post Operative Instructions - Dr Tripp Diet: You may resume your regular diet. We recommend eating plenty of fiber rich foods to prevent constipation, which can be caused by taking narcotic pain medications. You may also use a stool softener such as DulcoEase. We recommend drinking plenty of water unless you are on fluid restrictions for another medical condition. If you are a diabetic, make sure to keep your glucose well controlled as elevated glucose levels promote infection. Medications: You may resume your previous medications unless otherwise instructed by your surgeon, primary care doctor or steam hoist operator. You have been prescribed a Narcotic pain medication. Driving or drinking alcohol is PROHIBITED while taking narcotic pain medication, as is operating any heavy machinery. Activity: No bending and or twisting at the waist. No lifting greater than [address] until seen in the office for your first post-operative visit. You may be a passenger for a short time (20-30 minutes) until you are able to tolerate longer distances. Wound Care: Keep area clean and dry. Do not shower or get incision wet. The sutures will be removed by your surgeon in the office. Do not apply lotion or ointments to incision. General Recommendations: If sitting, use only a straight back chair to ensure proper support, not to exceed a half hour at a time. Lie only on a firm mattress, no couches or recliner chairs. You may lie on your back or side, but not on your abdomen. * Absolutely no bending, stooping, pushing, lifting or straining. * Avoid housework, especially vacuuming or sweeping. * OK to cook, as long as you are not lifting anything heavier than 5 pounds. * Use proper body mechanics to maintain a neutral spine position. * Increasing pain is a red flag telling you to rest. Call your surgeon or report to the ED if you develop: Fevers over 101.5 Chest pain, trouble breathing, calf pain Drainage from the incision (yellow/green, foul smelling) Follow-up Call surgeon's office to schedule your follow-up appointment in two weeks. Referred to following clinics/specialists for follow-up care: Bg Tripp MD [facility]/[address], [address] [place], [place] [address] [phone] Referrals: Laurent Silver MD [Staff Physician] - 1 Week Bg Tripp MD [Staff Physician] - Disposition: HOME - Home Medications Comprehensive Discharge Medication List: Ambulatory Orders Alirocumab [Praluent Pen] 75 mg SQ ASDIR 03/21/19 Allopurinol [Zyloprim -] 200 mg PO DAILY 03/21/19 Metoprolol Tartrate 50 mg PO DAILY 03/21/19 Prednisone 5 mg PO DAILY 03/21/19 Ropinirole HCl [Requip -] 2.5 mg PO HS 03/21/19 Valsartan [Diovan] 160 mg PO DAILY 03/21/19 predniSONE [Deltasone -] 4 mg PO HS 03/23/19 Doxycycline Hyclate 100 mg PO BID #28 capsule 03/25/19 Enoxaparin Sodium [Lovenox] 90 mg SQ Q12H #14 syringe 03/25/19 Oxycodone HCl/Acetaminophen [Percocet 5-325 mg Tablet] 1 tab PO Q8H #6 tablet MDD 3 03/25/19 This patient is new to me today: No Emergency Visit: No Critical Care patient: No - Discharge Referral Referred to [facility] No
[2019-03-25] MEDS ORDERED: SENNOSIDES 8.6MG TABLET (FP) PO SCH (22:00)
--- NOTE | 2019-04-10 13:43 | OP ---
DATE OF OPERATION: 03/22/2019 PREOPERATIVE DIAGNOSIS: Infected wound. POSTOPERATIVE DIAGNOSIS: Infected wound. PROCEDURE PERFORMED: Wound exploration and complex closure. SURGEON: Bo Tripp MD COMMUNICATIONS MARKETING INTERN: GIORGIO Blevins ESTIMATED BLOOD LOSS: 50 mL. INTRAVENOUS FLUIDS: Per anesthesia. ANESTHESIA: General. COMPLICATIONS: There were none. DISPOSITION: Patient was brought to the PACU in stable condition. INDICATION FOR SURGERY: Patient is a 68-year-old gentleman who had previously had a laminectomy by another surgeon. He had done well from that surgery but then he developed an infected wound. He had seen he in the office, and at that point, he had dehiscence of his wound. We had a long discussion regarding different types of treatment for him including formal incision and drainage as well as closure. Risks, benefits, and alternatives were discussed, and the patient consented to surgery. DESCRIPTION OF PROCEDURE: Patient was brought to the operating room by the anesthesia staff. After appropriate patient identification was performed, general anesthesia was given. Patient was placed prone onto the OR table with all areas of bony prominences well padded at this time. He had an obvious back wound. His back was prepped and draped in a sterile manner. At this point, a time-out was completed. His previous incision was opened up. There was pus noted, and it was sent for cultures. Thorough irrigation was performed. A thorough debridement was performed. A thorough exploration was performed, and there was no more pus. Then at this point, a complex closure was done. We used suture to close his wound. A sterile dressing was placed on. Patient placed supine on the OR bed, extubated in the OR, and brought to the PACU in stable condition. BO TRIPP M.D. [id number]
== END 2019-03-25 16:11 | disposition home or self-care (01) | DRG 858 ==
LOC: FM/S 08:41
PROVIDERS: ADMIT Orthopaedic Surgery Orthopaedic Surgery of the Spine; ATTEND Nurse Practitioner Acute Care
PROC: 00JU0ZZ Inspection of Spinal Canal, Open Approach (ICD-10-PCS; 2019-03-22)
PROC: 0Q9 Lower Bones, Drainage (ICD-10-PCS; principal; 2019-03-22 11:41)
DX: T81.49XA Infection following a procedure, other surgical site, initial encounter (principal); Y83.8 Other surgical procedures as the cause of abnormal reaction of the patient, or of later complication, without mention of misadventure at the time of the procedure; I10 Essential (primary) hypertension; L08.9 Local infection of the skin and subcutaneous tissue, unspecified; E78.5 Hyperlipidemia, unspecified; M35.3 Polymyalgia rheumatica; G47.33 Obstructive sleep apnea (adult) (pediatric); Z86.718 Personal history of other venous thrombosis and embolism; Z86.711 Personal history of pulmonary embolism; G25.81 Restless legs syndrome
CPT/HCPCS: 36415; 80048; 80053; 83735; 85025; 85027; 85610; 85651; 86140; 87070; 87186; 87205; 94760; J7030